=== PATIENT | female | born 2005 | race Asian ===

== ENCOUNTER 2025-02-14 01:27 | Emergency (ER) | payer SELFPAY ==
[2025-02-14 01:31] VITALS: BP 134/88; PULSE 84; RESP 18; TEMP 36.7; O2SAT 99
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
[2025-02-14 02:04] VITALS: BP 128/74; PULSE 80; RESP 18; TEMP 36.7; O2SAT 99
[2025-02-14] MEDS: IBUPROFEN 600 MG TABLET PO (02:04)
== END 2025-02-14 02:21 | disposition home or self-care (01) ==
PROVIDERS: Emergency Provider Family Medicine
DX: T22.211A Burn of second degree of right forearm, initial encounter (principal); T23.222A Burn of second degree of single left finger (nail) except thumb, initial encounter; X19.XXXA Contact with other heat and hot substances, initial encounter
CPT/HCPCS: 99283; A9270